=== PATIENT | female | born 1960 | race Caucasian/White ===

== ENCOUNTER 2017-04-28 10:14 | Emergency (ER) | payer OTHER ==
[~2017-04-28] VITALS: Ht 170.2 cm; Wt 80.5 kg
[~2017-04-28 10:14] MED LIST: CLON0.1T PO; DIPH25CA6 PO; QUET400T PO; RANI300C PO; SULF1TAB7 PO; methadone liquid PO
[2017-04-28 10:15] VITALS: BP 140/85; PULSE 97; RESP 20; O2SAT 97
--- NOTE | 2017-04-28 10:28 | ED.REPORT ---
HPI-General Illness Date of Service Apr 28, 2017 ED Provider: Dr. 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 Her pain is relieved by movement. Patient also reports constipation and 16 lbs of weight gain in the past 2 months. Her last BM was last night. She describes the pain as a diffuse ache. She denies any current nausea or vomiting but reports one episode of emesis earlier this week. Patient denies fever, chills, diarrhea or hematochezia. She denies any drug or EtOH use. Patient states that her platelet count has been low lately and that she's seeing a doctor for this and for a thyroid problem. Nursing Notes Stated Complaint: STOMACH PAIN Chief Complaint: Female Abdominal Pain Nursing Notes Reviewed: Yes Allergies: Coded Allergies: bee venom protein (honey bee) (Verified Allergy, Unknown, 04/28/17) Scheduled ([methadone liquid]) 60 MG PO QAM Quetiapine Fumarate (Seroquel) 400 Mg Tablet 400 MG PO HS Ranitidine (Ranitidine) 300 Mg Capsule 300 MG PO BID Sulfamethoxazole/Trimeth 800-160 mg (Bactrim DS) 1 Each Tablet 1 TABLET PO BID Scheduled PRN Clonidine (Clonidine) 0.1 Mg Tablet 0.1 MG PO TID PRN PRN Withdrawal Symptoms diphenhydrAMINE HCl (Benadryl) 25 Mg Capsule 25 MG PO Q4 PRN PRN For Itching General Time Seen by MD: 10:27 Chief Complaint Abdominal pain Hx Obtained From: Patient Arrived By: Walk-in Sudden in Onset?: No Location: : Abdomen Quality: Painful Radiation: : Does not radiate Severity: Current: Moderate Severity: Maximum: Moderate Associated with: Reports: Abdominal pain Pertinent Negative: Pt denies other symptoms Recent Healthcare: No recent doctor visit, No recent hospitalization Past Medical History Past Medical History Notes: Admit 10/12-02/24 for abdominal Abscess (cutaneous, drained in OR, culture +MRSA) Seen in ED 10/08/15 - thrombocytopenia plt 37 (repeat platelet 10/12 >100) Past Medical History IM drug abuse (heroin)--currently on methadone program Heart Murmur 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, cutaneous) Past Surgical History Abdominal cutaneous wall abscess drained 10/2015 Reports: , Cholecystectomy, Hysterectomy Family History Brother of leukemia Mother of brain aneurysm Smoking History Light Tobacco Smoker Social History Alcohol Use: Denies alcohol use Drug Use: In recovery, THC Other Social History: Local resident Ambulatory Status Independent Review of Systems 16 lbs of weight gain over past 2 months Full Review of Systems Constitutional: Denies: Chills, Fever GI: Reports: Abdominal pain, Constipation, Denies: Bloody/tarry stool, Diarrhea, Hematochezia, Nausea, Vomiting (one episode of emesis ) Complete sys rev & neg: except as marked. Physical Exam Nursing note and vitals reviewed. Constitutional: Somewhat disheveled female sitting up in bed, agitated. Head: Normocephalic and atraumatic. Mouth/Throat: Oropharynx is clear and moist. No oropharyngeal exudate. Mucous membranes are moist. Eyes: EOM are normal. Pupils are equal, round, and reactive to light. No proptosis. Neck: Supple, no tracheal deviation. Cardiovascular: Normal rate, regular rhythm. Equal and intact distal pulses throughout. No peripheral edema. Pulmonary/Chest: Effort normal and breath sounds normal. No respiratory distress. Abdominal: Soft. No distension. Left upper quadrant tenderness to palpation. No guarding or rebound. Musculoskeletal: Range of motion grossly intact, moving all extremities. No edema or tenderness appreciated. Neurological: AOx3. Grossly nonfocal exam. Strength and sensation intact and equal to bilateral upper and lower extremities. Skin: Warm and dry, no rashes or pallor appreciated. Psychiatric: Agitated. No SI or HI. Vital Signs Vital Signs Date Time Temp Pulse Resp B/P Pulse Ox O2 Delivery O2 Flow Rate FiO2 04/28/17 17:21 82 118/60 04/28/17 14:48 74 19 118/55 94 Room Air 04/28/17 11:54 36.7 88 16 126/69 98 Room Air 04/28/17 10:15 36.4 97 20 140/85 97 Initial VS: Reviewed Interpretation & Diagnostics Lab Results Interpretation Result Diagram: 04/28/17 1150 04/28/17 1150 Test 04/28/17 11:50 04/28/17 17:02 White Blood Count 9.5th/mm3 (3.8-10.1) Red Blood Count 4.43mil/mm3 (3.90-5.20) Hemoglobin 12.5g/dL (12.0-15.6) Hematocrit 37.4% (35.0-46.0) Mean Corpuscular Volume 84.4fL (81-100) Mean Corpuscular Hemoglobin 28.2pg (27.0-35.0) Mean Corpuscular Hemoglobin Concent 33.4% (32.0-37.0) Red Cell Distribution Width 12.8% (12.3-15.4) Platelet Count 34bil/L (150-400) Neutrophils (%) (Auto) 55.2% (40-74) Lymphocytes (%) (Auto) 29.0% (14-46) Monocytes (%) (Auto) 13.2% (4-12) Eosinophils (%) (Auto) 1.4% (0-5) Basophils (%) (Auto) 0.8% (0-3) Prothrombin Time 10.9sec (8.1-12.5) Prothromb Time International Ratio 1.02ratio Sodium Level 136mEq/L (134-144) Potassium Level 4.4mEq/L (3.5-5.2) Chloride Level 98mEq/L (97-108) Carbon Dioxide Level 24mmol/L (18-29) Blood Urea Nitrogen 22mg/dL (6-24) Creatinine 0.79mg/dL (0.57-1.00) Estimat Glomerular Filtration Rate 108mL/min (>59) Glucose Level 104mg/dL (60-99) Lactic Acid Level 0.9mmol/L (0.4-2.0) Calcium Level 9.4mg/dL (8.5-10.1) Magnesium Level 2.2mg/dL (1.6-2.6) Total Bilirubin 0.6mg/dL (0.0-1.2) Aspartate Amino Transf (AST/SGOT) 58U/L (0-50) Alanine Aminotransferase (ALT/SGPT) 53U/L (0-32) Alkaline Phosphatase 181U/L (25-150) Total Protein 8.0g/dL (6.4-8.4) Albumin 4.2g/dL (3.4-5.0) Lipase 22U/L (13-60) Thyroid Stimulating Hormone (TSH) 1.180uIU/mL (0.450-4.500) Free Thyroxine 3.14ng/dL (0.82-1.77) Urine Color Yellow (YELLOW) Urine Appearance Clear (CLEAR,HAZY) Urine pH 5.5 (5.0-8.0) Urine Specific [place] 1.010 (1.003-1.035) Urine Protein Negativemg/dL (NEG,TRACE) Urine Glucose (UA) Negativemg/dL (NEGATIVE) Urine Ketones Tracemg/dL (NEGATIVE) Urine Occult Blood Negative (NEGATIVE) Urine Nitrite Negative (NEGATIVE) Urine Bilirubin Negative (NEGATIVE) Urine Urobilinogen Normalmg/dL (NORMAL) Urine Leukocyte Esterase Negative (NEGATIVE) Urine RBC 0-2/hpf (0-2) Urine WBC 0-5/hpf (0-5) Urine Epithelial Cells Moderate/hpf (NONE-MOD) Urine Crystals None seen (NONE SEEN) Urine Bacteria Few/hpf (NONE-FEW) Urine Hyaline Casts None/lpf (NONE) Urine Granular Casts None seen (NONE SEEN) Urine Waxy Casts None seen (NONE SEEN) Urine Red Blood Cell Casts None seen (NONE SEEN) Urine White Blood Cell Casts None seen (NONE SEEN) Urine Mucus None seen (None Seen) Urine Trichomonas None seen (NONE SEEN) Urine Yeast None (NONE SEEN) Urinalysis Comment None Urine Culture Reflexed Not indicated ECG Interpretation ECG Interpretation: Sinus Rhythm Rate 81 Time: 12:22 Interpreted by: ED physician CT Abd / Pelvis Interpretation IMPRESSION: 1. Cause of abdominal pain not identified. No evidence for inflammation is seen in this patient with history of abscess in the past. 2. 17 mm oval metallic density in the lumen of the stomach of unknown significance. 3. Previous cholecystectomy. Dictated by: Anton Ventura M.D. on 04/28/2017 at 13:26 Study type: Abdominal CT IV contrast, Abdom CT oral contrast Interpretation / Wet Read by: Interpret - Radiologist Re-Eval/Medical Decision Med Decision/Clinical Course In summary, 56-year-old female with complex past medical history presenting to the ED for evaluation of abdominal pain that started yesterday. She denies drug use, however upon arrival she is agitated and has difficulty cooperating with the examination. She was given Haldol and intramuscular Versed as calming agents for IV placement and CT scan. CT scan with no obvious findings to account for her pain. Laboratory studies notable for thrombocytopenia, present previously, as well as an elevated free T4 with a normal TSH. She does not fit clinically with thyroid storm at this time unsure if she is on thyroid supplementation, however she needs follow-up for this. Discussed her abnormal laboratory results with the patient she says that she is already aware of these findings. Upon reassessment, patient reports improvement in pain. After an extensive discussion of return precautions and need for very close follow-up , patient agreeable to plan for discharge. All questions answered. Time of Eval: 14:50 Patient Status: Condition improved Re-Evaluation/Progress Note: She is informed of her CT results and lab results, including thyroid and platelet count. All questions are addressed. Time of Eval: 16:40 Patient Status: Condition improved, Pain improved, Ate in ER without N/V Evaluation: Abdomen soft/non-tender Re-Evaluation/Progress Note: Pain is resolved. She is able to ambulate without difficulty. She understands and agrees with the plan to discharge with follow-up. Counseled Regarding: Diagnosis, Lab results, Need for follow-up, When/why to return to ED Discharge & Departure Primary Impression: Resolved abdominal pain Additional Impression: Thrombocytopenia Disposition: Home Discharge Condition All VS Reviewed: Yes Condition: Stable Patient Instructions: Acute Abdominal Pain (ED), Thrombocytopenia (ED) Additional Instructions: Thank you for trusting us with your care this afternoon. Your emergency department evaluation today included interview, examination, lab work and abdominal CT. Your platelet count today was low, however, a clear cause of your symptoms was not identified. Your counts have been low in the past, as you mentioned, but I still recommend that you schedule a follow-up appointment to see your primary care physician in the next 2-3 days for a recheck. This could be serious and needs close follow up. Please continue to take other home medication as directed. Please return to the emergency department for any new or worsening conditions including any worsening abdominal pain, high fevers, chills, nausea, vomiting or lightheadedness. Referrals: Aman Villanueva MD (PCP) Eligio Attestation Portions of this note were transcribed by Jatin Dallas. I, Dr. Banks personally performed the history, physical exam and medical decision-making; I reviewed and confirmed the accuracy of the information in the transcribed note. Signed by: Eligio Centeno, 04/28/17 1653. copies to: Aman Villanueva MD, William B MD Apr 28, 2017 10:28 JATIN DALLAS Apr 28, 2017 10:50
[2017-04-28] MEDS ORDERED: Haloperidol 5 mg/mL Inj IM PRN (11:35)
[2017-04-28] MEDS ORDERED: 0.9% Sodium Chloride 1,000 ML IV ONE (11:36)
[2017-04-28] MEDS ORDERED: Ondansetron 2 mg/mL 2 mL Inj IVPUSH PRN (11:40)
[2017-04-28] MEDS ORDERED: HYDROmorphone 0.5 mg/0.5 mL iSecure Syringe IVPUSH PRN (11:40)
[2017-04-28 11:54] VITALS: BP 126/69; PULSE 88; RESP 16; O2SAT 98
[2017-04-28 12:34] LABS: BASOPHILS % (AUTO) 0.8 % (0-3); EOSINOPHILS % (AUTO) 1.4 % (0-5); INR 1.02 ratio; MONOCYTES % (AUTO) 13.2 % (4-12); Mean Corpuscular Hemoglobin 28.2 pg (27.0-35.0); Mean Corpuscular Volume 84.4 fL (81-100); NEUTROPHILS % (AUTO) 55.2 % (40-74)
[2017-04-28 12:38] LABS: Platelet Count 34 bil/L (150-400)
[2017-04-28 12:43] LABS: Magnesium 2.2 mg/dL (1.6-2.6)
--- NOTE | 2017-04-28 13:35 | DRSVH ---
PROCEDURE: CT ABDOMEN AND PELVIS WITH CONTRAST ([id number]) INDICATIONS: abdominal pain; hx of intraabdom abscess TECHNIQUE: After the administration of intravenous contrast, 5 mm thick sections acquired from the diaphragm to the symphysis. 5 mm coronal and sagittal reformats were acquired. For radiation dose reduction, the following was used: automated exposure control, adjustment of mA and/or kV according to patient siz e. COMPARISON: None. FINDINGS: Image quality: Excellent. ABDOMEN: Lung bases: Lung bases are clear. Heart size is normal. Solid organs: Liver and spleen are normal in size and enhancement. Gallbladder has been removed. B iliary system is distended consistent with previous cholecystectomy and unchanged since previous CT. Pancreas enhances normally. No adrenal nodules. Kidneys demonstrate normal size and enhancement, wi thout hydronephrosis. Peritoneum and bowel: There is an oval 17 mm in diameter metallic density in the antrum of the stomac h of unknown significance Bowel loops demonstrate normal wall thickness and caliber. No free fluid o r air. There is a normal appendix. Nodes and vessels: No retroperitoneal or mesenteric adenopathy by size criteria. Aorta and inferior vena cava are normal in size. Miscellaneous: No ventral hernias. PELVIS: Genitourinary: Bladder wall thickness is normal. Uterus has probably been removed or is atrophic in appearance. Miscellaneous: No inguinal hernias or adenopathy. Bones: No suspicious bony lesions. No vertebral body compression fractures. IMPRESSION: 1. Cause of abdominal pain not identified. No evidence for inflammation is seen in this patient with history of abscess in the past. 2. 17 mm oval metallic density in the lumen of the stomach of unknown significance. 3. Previous cholecystectomy. Dictated by: Anton Ventura M.D. on 04/28/2017 at 13:26 Approved by: Anton Ventura M.D. on 04/28/2017 at 13:33
[2017-04-28 14:48] VITALS: BP 118/55; PULSE 74; RESP 19; O2SAT 94
[2017-04-28 17:13] LABS: APPEARANCE,URINE CLEAR (CLEAR,HAZY); COLOR,URINE YELLOW (YELLOW); OCCULT BLOOD,URINE NEGATIVE (NEGATIVE); PH,URINE 5.5 (5.0-8.0); UROBILINOGEN,URINE NORMAL (NORMAL)
[2017-04-28 17:21] VITALS: BP 118/60; PULSE 82
== END 2017-04-28 17:00 | disposition home or self-care (01) ==
LOC: SED 10:14
DX: R10.13 Epigastric pain (principal); D69.6 Thrombocytopenia, unspecified; F12.10 Cannabis abuse, uncomplicated; F17.200 Nicotine dependence, unspecified, uncomplicated; F11.21 Opioid dependence, in remission; Z90.710 Acquired absence of both cervix and uterus; Z86.14 Personal history of Methicillin resistant Staphylococcus aureus infection; Z90.49 Acquired absence of other specified parts of digestive tract
CPT/HCPCS: 36415; 74177; 80053; 81000; 81002; 83605; 83690; 83735; 84439; 84443; 85025; 85610; 87040; 93005; 96360; 96372; 99285; J1630; J2250; J7030; Q9967